=== PATIENT | male | born 1990 | race Caucasian/White ===

== ENCOUNTER 2020-04-28 21:16 | Emergency (ER) | payer MEDICAID ==
[~2020-04-28] VITALS: Ht 175.3 cm; Wt 72.0 kg
[2020-04-29] MEDS ORDERED: ONDANSETRON 4MG ODT PO STA (01:33)
[2020-04-29] MEDS ORDERED: ACETAMINOPHEN 325MG TABLET PO STA (01:33)
[2020-04-29 02:14] LABS: BASOPHILS % 0.6 % (0.0-2.0); EOSINOPHILS % 0.3 % (0.0-5.0); HEMATOCRIT. 45.2 % (42.0-52.0); HEMOGLOBIN. 15.8 g/dL (14.0-18.0); LYMPHOCYTES % 14.6 % (20.0-50.0); MEAN CORPUSCULAR HEMOGLOBIN 32.2 pg (28.0-32.0); MEAN CORPUSCULAR VOLUME 92.2 fL (80.0-94.0); MONOCYTES % 8.6 % (2.0-8.0); NEUTROPHILS % 75.9 % (40.0-76.0); PLATELET 294 x1000/uL (130-400); RED BLOOD CELL COUNT 4.91 mill/uL (4.7-6.1); RED CELL DISTRIBUTION WIDTH 13.5 % (11.6-14.6)
[2020-04-29 02:19] LABS: CHLORIDE 104 mEq/L (98-107)
[2020-04-29 02:23] LABS: ETHANOL BLOOD < 10 mg/dL
[2020-04-29 02:52] VITALS: BP 117/80
[2020-04-29 03:27] LABS: METHADONE URINE SCREEN NEGATIVE (NEGATIVE); OPIATES URINE SCREEN NEGATIVE (NEGATIVE)
[2020-04-29 03:28] LABS: *AMPHETAMINES SCREEN URINE PRESUMTIVE POSITIVE (NEGATIVE); *BARBITURATES SCREEN URINE NEGATIVE (NEGATIVE); *BENZODIAZEPINES SCREEN URINE NEGATIVE (NEGATIVE); *COCAINE SCREEN URINE NEGATIVE (NEGATIVE); CANNABINOID URINE SCREEN PRESUMTIVE POSITIVE (NEGATIVE); PHENCYCLIDINE URINE SCREEN PRESUMTIVE POSITIVE (NEGATIVE)
== END 2020-04-29 04:32 | disposition home or self-care (01) ==
LOC: ER 21:16
DX: F15.10 Other stimulant abuse, uncomplicated (principal); F12.10 Cannabis abuse, uncomplicated; R06.00 Dyspnea, unspecified
CPT/HCPCS: 36415; 71045; 80048; 80305; 80320; 85025; 99284; Q0162; G0480

== ENCOUNTER 2020-04-30 00:05 | Emergency (ER) | payer MEDICAID ==
[~2020-04-30] VITALS: Ht 170.2 cm; Wt 80.0 kg
[2020-04-30 01:00] VITALS: BP 130/85
== END 2020-04-30 00:53 | disposition home or self-care (01) ==
LOC: ER 00:05
DX: F15.10 Other stimulant abuse, uncomplicated (principal); F12.10 Cannabis abuse, uncomplicated; F19.10 Other psychoactive substance abuse, uncomplicated; R11.2 Nausea with vomiting, unspecified; R06.00 Dyspnea, unspecified
CPT/HCPCS: 99281